=== PATIENT | female | born 1985 | race Hispanic/Latino ===

== ENCOUNTER 2017-06-22 05:56 | Day surgery (SDC) | payer OTHER ==
[~2017-06-22 05:56] MED LIST: MARCAINE 0.25% INFILTRATI ONE
[2017-06-22] MEDS ORDERED: NACL BACTERIOSTATIC INFILTRATI ONE (06:45)
[2017-06-22] MEDS ORDERED: DIPRIVAN 10 MG/ML IV ONE (07:14)
[2017-06-22] MEDS ORDERED: SUBLIMAZE ONE (07:15)
[2017-06-22] MEDS ORDERED: ZOFRAN ONE (07:16)
[2017-06-22] MEDS ORDERED: XYLOCAINE CARDIAC IV ONE (07:16)
--- NOTE | 2017-06-22 07:29 | Anesthesia Consultation ---
Anesthesia Consult and Med Hx Date of service: 06/22/17 - Airway Anesthetic Teeth Evaluation: Good, Chipped Mallampati Class: Class II Intubation Access Assessment: Probably Good - Pulmonary Exam CTA: Yes - Cardiac Exam Cardiac Exam: RRR - Pre-Operative Health Status ASA Pre-Surgery Classification: ASA2 Proposed Anesthetic Plan: General - Pulmonary Hx Smoking: Yes (former smoker, quit 4-5 yrs ago) Hx Asthma: No COPD: No Hx Pneumonia: No - Cardiovascular System Hx Hypertension: No - Central Nervous System Hx Seizures: No Hx Psychiatric Problems: No - Endocrine Hx Renal Disease: No Hx End Stage Renal Disease: No Hx Hypothyroidism: No Hx Hyperthyroidism: No - Hematic Hx Anemia: No Hx Sickle Cell Disease: No - Other Systems Hx Alcohol Use: Yes (occas) Hx Cancer: No
--- NOTE | 2017-06-22 07:30 | Anesthesia Day of Surgery ---
Anesthesia Day of Surgery - Day of Surgery Patient Examined: Yes Patient H&P Reviewed: Yes Patient is NPO: Yes
--- NOTE | 2017-06-22 07:38 | Short Stay Summary ---
Short Stay Documentation Date of service: 06/22/17 Narrative H&P: Patient is a 32 year old who presents for removal of chronic bartholins gland cyst. Patient has had an ongoing issue for more than 2 years. - History H&P: obtained from office Past Medical History: No medical history Past Surgical History: No surgical history Social history: - Allergies and Medications Current Medications: Allergies diphenhydramine [From Benadryl] Allergy (Verified 06/21/17 11:06) Anaphylaxis Home Medications Medication Instructions Recorded Confirmed Last Taken Type Ethinyl Estradiol/Drospirenone 1 tab PO DAILY 06/21/17 06/22/17 06/21/17 History [Vestura 3 mg-0.02 mg Tablet] Active Medications Famotidine (Pepcid) 20 mg IV PREOP NR Sodium Chloride (Nacl 0.9% 1000 Ml) 1,000 mls @ 100 mls/hr IV DIRECT JW Midazolam HCl (Versed) 2 mg IV PREOP NR Stop: 06/22/17 23:59 - Physical exam General appearance: no acute distress Lungs: Clear to auscultation, Normal air movement Breasts: deferred Heart: Regular rate, Normal S1, Normal S2 Gastrointestinal: normal, normoactive bowel sounds Female Genitourinary: normal Rectal Exam: deferred Extremities: No edema - Brief post op/procedure progress note Date of procedure: 06/22/17 Pre-op diagnosis: Chronic Bartholins Abscess Post-op diagnosis: same Procedure: Excision of Bartholins gland Anesthesia: MAC Findings: 4cm oblong bartholins abscess on right vulva Surgeon: CHRISTIANO ROSADO Estimated blood loss: 50-100ml Pathology: list (bartholins gland) Condition: stable - Hospital course Hospital course: unremarkable - Disposition Condition at discharge: Good Disposition: DC-01 TO HOME OR SELFCARE Short Stay Discharge Plan Activity: advance as tolerated Weight Bearing Status: Weight Bear as Tolerated Diet: regular Additional Instructions: Come to doctor's office tomorrow to remove packing Follow up with: CHRISTIANO ROSADO MD [Staff Physician] - 14 Days Prescriptions: Doxycycline [Vibramycin CAP] 100 mg PO Q12HR #20 capsule HYDROcodone/ACETAMINOPHEN [[place] 5-325 Tablet] 1 each PO Q6H #15 tablet Ibuprofen 600 mg PO Q4-6H #30 tablet
[2017-06-22] MEDS: VERSED IV NR ×2 (07:52→08:07)
[2017-06-22] MEDS ORDERED: PEPCID IV NR (08:00)
[2017-06-22] MEDS ORDERED: NACL 0.9% 1000 ML 1,000 ML IV SCH (08:00)
[2017-06-22] MEDS ORDERED: MARCAINE 0.25% INFILTRATI ONE (09:13)
[2017-06-22] MEDS ORDERED: TORADOL ONE (10:16)
[2017-06-22 11:00] VITALS: BP 107/56
--- NOTE | 2017-06-22 11:56 | Operative Report ---
Operative Report Operative Report: Preoperative diagnosis: Chronic Bartholin's gland abscess Postoperative diagnosis: Same Procedure: Excision of Bartholin's gland Findings: 4 cm Bartholin's gland on the right side. Surgeon: Dr. Stevo Shoemaker Anesthesia: MAC EBL: 100 mL Urine out: 200 mL clear IV fluids: 900 mL Specimen: Bartholin's gland Procedure: The patient was taken to the OR with IV running and in place. Properly identified as herself. She was given local mac anesthesia without difficulty. She was then Placed in the dorsal lithotomy position, and prepped and draped in the normal sterile fashion. Attention was then turned to the patient's vagina. An incision was made longitudinally on the vaginal side of the abscess. Mucosa of the vagina was dissected away from the underlying abscess in the series of sharp and blunt dissection. In this process the abscess was inadvertently ruptured and approximately 20 mL of yellow purulent fluid was suctioned out of the cyst. The remainder of the cyst wall was dissected out from the underlying tissue. The remaining space was reapproximated with individual sutures of 2-0 Vicryl. Hemostasis of the area was achieved with holding pressure on the right lateral area just underneath the symphysis pubis. Skin was closed in a running fashion with 3-0 Vicryl. Vaginal mucosa was also closed longitudinally in a running fashion with 3-0 Vicryl. A partial vaginal pack was placed into the vagina to help close the space and to add pressure. There was excellent hemostasis at the end of the procedure. Patient was awakened and taken to recovery in stable condition. Sponge needle and instrument counts were correct 2.
== END 2017-06-22 11:28 | disposition home or self-care (01) ==
LOC: OR 05:56
PROVIDERS: ATTEND Obstetrics & Gynecology
DX: N75.0 Cyst of Bartholin's gland (principal); Z88.8 Allergy status to other drugs, medicaments and biological substances; Z87.891 Personal history of nicotine dependence
CPT/HCPCS: 56740; 81025; 88304; J1885; J2001; J2250; J2405; J2704; J3010; J7030; 88305